=== PATIENT | male | born 1985 | race Caucasian/White ===

== ENCOUNTER 2016-10-09 10:47 | Emergency (ER) | payer BC, OTHER ==
[2016-10-09 11:29] LABS: % BASOPHILS 0.3 % (0.0-2.0); % EOSINOPHILS 8.7 % (0.0-5.0); % MONOCYTES 9.8 % (2.0-10.0); % NEUTROPHILS 52.2 % (40.0-80.0); HEMATOCRIT 45.8 % (39.0-49.0); HEMOGLOBIN 15.6 gm/dL (13.2-17.3); MEAN CELL VOLUME 91.8 fl (80-99); MEAN CORPUSCULAR HEMOGLOBIN 31.2 pg (26.0-30.0); MEAN PLATELET VOLUME 8.4 fl; PLATELET COUNT 209 Th/cmm (150-400); RED BLOOD COUNT 4.99 Mil/cmm (4.30-5.70); RED CELL DISTRIBUTION WIDTH 12.8 % (11.5-20.0); WHITE BLOOD COUNT 7.7 Th/cmm (4.8-10.8)
--- NOTE | 2016-10-09 11:42 | ED Physician Chart ---
Chief Complaint/HPI - Patient Information Date Seen:: 10/09/16 Time Seen:: 11:06 Chief Complaint:: RIGHT FLANK PAIN History of Present Illness:: THIS IS A 31 YO MALE WHO STATES THAT THIS AM HE PICKED UP A CAN OF PAIN AND HEARD A POP THEN STARTED TO GET PAIN IN HIS RIGHT SIDE AND BACK. HE DENIES NAUSEA AND VOMITING. HE DENIES FEVER, DIARRHEA AND CONSTIPATION. HE STATES THAT HE HAD EXPLORATORY ABDOMINAL SURGERY FOR A PERFORATION OF AN ULCER YRS AGO. Allergies:: Allergies Allergy/AdvReac Type Severity Reaction Status Date / Time iodine AdvReac Verified 10/09/16 11:02 Vitals:: Vital Signs - 8 hr 10/09/16 11:02 Temp 98.4 F HR 73 RR 16 BP 133/83 O2 Sat % 100 Historian:: Patient Review:: Nurse's Note Reviewed Review of Systems - Review of Systems General/Constitutional: No fever, No chills, No weight loss, No weakness, No diaphoresis, No edema, No loss of appetite Skin: No skin lesions, No rash, No bruising Head: No headache, No light-headedness Eyes: No loss of vision, No pain, No diplopia ENT: No earache, No nasal drainage, No sore throat, No tinnitus Neck: No neck pain, No swelling, No thyromegaly, No stiffness, No mass noted Cardio Vascular: No chest pain, No palpitations, No PND, No orthopnea, No edema Pulmonary: No SOB, No cough, No sputum, No wheezing GI: No nausea, No vomiting, No diarrhea, Pain, No melena, No hematochezia, No constipation, No hematemesis G/U: No dysuria, No frequency, No hematuria Musculoskeletal: No bone or joint pain, Back pain, No muscle pain Endocrine: No polyuria, No polydipsia Psychiatric: No prior psych history, No depression, No anxiety, No suicidal ideation Hematopoietic: No bruising, No lymphadenopathy Allergic/Immuno: No urticaria, No angioedema Neurological: No syncope, No focal symptoms, No weakness, No paresthesia, No headache, No seizure, No dizziness, No confusion, No vertigo Past Medical History - Past Medical History Obtainable: Yes Past Medical History: Renal stone, Other Family History: None Social History: Non Smoker, No Alcohol, No Drug Use, Employed Surgical History: other (EXPLORATORY LAP) Psychiatricy History: None Medication: Reviewed Family Medical History - Family Member mother History Unknown: Yes Physical Exam - Physical Examination General/Constitutional: Awake, Well-developed, well-nourished, Alert, No distress, GCS 15, Non-toxic appearing, Ambulatory Head: Atraumatic Eyes: Lids, conjuctiva normal, PERRL, EOMI Skin: Nl inspection, No rash, No skin lesions, No ecchymosis, Well hydrated, No lymphadenopathy ENMT: External ears, nose nl, Nasal exam nl, Lips, teeth, gums nl Neck: Nontender, Full ROM w/o pain, No JVD, No nuchal rigidity, No bruit, No mass, No stridor Respiratory: Nl effort/Exclusion, Clear to Auscultation, No Wheeze/Rhonchi/Rales Cardio Vascular: RRR, No murmur, gallop, rubs, NL S1 S2 GI: No tenderness/rebounding/guarding, No organomegaly, No hernia, Normal BS's, Nondistended, No mass/bruits, No McBurney tenderness : No CVA tenderness Extremities: No tenderness or effusion, Full ROM, normal strength in all extremities, No edema, Normal digits & nails Neuro/Psych: Alert/oriented, DTR's symmetric, Normal sensory exam, Normal motor strength, Judgement/insight normal, Mood normal, Normal gait, No focal deficits Misc: No paraspinal tenderness Other Misc comments:: THERE IS SOME TENDERNESS IN THE RIGHT LUMBOSCRAL AREA ON PALPATION AND MOVEMENT. Labs/Radiology/EKG Results - Lab Results Results: Laboratory Tests 10/09/16 11:20 WBC 7.7 RBC 4.99 Hgb 15.6 Hct 45.8 MCV 91.8 MCH 31.2 H MCHC Differential 34.0 RDW 12.8 Plt Count 209 MPV 8.4 Neutrophils % 52.2 Lymphocytes % 29.0 Monocytes % 9.8 Eosinophils % 8.7 H Basophils % 0.3 Abnormal Lab Results 10/09/16 10/09/16 11:20 11:20 WBC 7.7 RBC 4.99 Hgb 15.6 Hct 45.8 MCV 91.8 MCH 31.2 H MCHC Differential 34.0 RDW 12.8 Plt Count 209 MPV 8.4 Neutrophils % 52.2 Lymphocytes % 29.0 Monocytes % 9.8 Eosinophils % 8.7 H Basophils % 0.3 Sodium 137 Potassium 4.2 Chloride 107 Carbon Dioxide 25.4 Anion Gap 8.8 BUN 18 Creatinine 1.0 Est GFR ( Amer) > 60.0 Est GFR (Non-Af Amer) > 60.0 BUN/Creatinine Ratio 18.0 Glucose 101 Calcium 9.8 Total Bilirubin 0.5 AST 29 ALT 49 Alkaline Phosphatase 63 Total Protein 7.0 Albumin 4.5 Globulin 2.5 Albumin/Globulin Ratio 1.8 - Radiology Results Results: ULTRASOUND OF THE ABDOMEN = NAD Assessment - Assessment General Assessment: BACK STRAIN ED Septic Shock - . Is Septic Shock (SBP<90, OR Lactate>4 mmol\L) present?: No - <6hrs of presentation: Vital Signs: Vital Signs - 8 hr 10/09/16 11:02 Temp 98.4 F HR 73 RR 16 BP 133/83 O2 Sat % 100 Reassessment (Disposition) - Reassessment Reassessment Condition:: Improved - Diagnosis Diagnosis:: BACK STRAIN - Aftercare/Follow up Instructions Aftercare/Follow-Up Instructions:: Counseled pt regarding lab results/diagnosis & need follow up, Refer to Discharge Instructions, Counseled pt & family regarding lab results/diagnosis & need follow up - Patient Disposition Discharge/Transfer:: Home Condition at Disposition:: Improved ED Discharge Plan - Patient Disposition Admit/Discharge/Transfer: PT DISCHARGED HOME Condition at Disposition: Improved
[2016-10-09 11:49] LABS: ALB/GLOB RATIO 1.8 (1.0-1.8); ALKALINE PHOSPHATASE 63 U/L (34-104); ANION GAP 8.8 (7.0-16.0); BILIRUBIN,TOTAL 0.5 mg/dL (0.3-1.0); BUN - UREA NITROGEN 18 mg/dL (7-25); CALCIUM SERUM 9.8 mg/dL (8.6-10.3); CARBON DIOXIDE 25.4 mEq/L (21.0-31.0); CHLORIDE 107 mEq/L (98-107); GLUCOSE 101 mg/dL (70-105); POTASSIUM SERUM 4.2 mEq/L (3.5-5.1); SGOT 29 U/L (13-39); SGPT/ALT 49 U/L (7-52); SODIUM SERUM 137 mEq/L (136-145)
[2016-10-09] MEDS ORDERED: HYDROmorphone 1 mg/mL 1mL Syr ONE (12:18)
[2016-10-09] MEDS ORDERED: HYDROmorphone 1 mg/mL 1mL Syr IM STA (12:20)
--- NOTE | 2016-10-09 12:31 | Diagnostic Imaging Report ---
Exam: Ultrasound examination of the abdomen. HISTORY: Abdominal pain: Findings: Real-time ultrasound examination of the abdomen performed multiple planes. The study demonstrates normal echogenicity liver parenchyma. The gallbladder free of calculi the common bile duct measures 5-mm. Pancreas is poorly seen. There is no evidence of obstructive uropathy or nephrolithiasis. Right kidney measures 11.0 x 4.1 x 5.3 cm ,left kidney measures 12.2 x 6.6 x 5.9 cm. The spleen is intact no free fluid is noted. IMPRESSION: Unremarkable examination of the abdomen.
== END 2016-10-09 12:37 | disposition home or self-care (01) ==
LOC: ER 10:47
DX: S39.012A Strain of muscle, fascia and tendon of lower back, initial encounter (principal); Z91.041 Radiographic dye allergy status; X58.XXXA Exposure to other specified factors, initial encounter; Y93.89 Activity, other specified; Y92.89 Other specified places as the place of occurrence of the external cause; Y99.8 Other external cause status
CPT/HCPCS: 99285; 96372 ×2; 76700; 36415; 85025; 80053; J1885; J2405; J1170